=== PATIENT | male | born 2000 | race Caucasian/White ===

== ENCOUNTER 2019-07-21 16:25 | Emergency (ER) | payer OTHER ==
[~2019-07-21] VITALS: Ht 167.6 cm; Wt 63.5 kg
[2019-07-21 16:25] VITALS: BP_SYST 122
--- NOTE | 2019-07-21 16:25 | NUR ---
BROUGHT BACK TO BED #7 AND TRIAGED. REPORT GIVEN TO [facility]
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
--- NOTE | 2019-07-21 16:40 | NUR ---
ER Dr. Rodriguez at bedside examining patient.
[2019-07-21 16:50] VITALS: BP_SYST 122
--- NOTE | 2019-07-21 16:50 | NUR ---
ER discussed with the patient the results and treatment provided. Patient given written and verbal discharge instructions and verbalized understanding. Opportunity for questions provided and answered. Patient in stable condition, last set of vital signs within normal limits, pain scale 0/10, speaking in full sentences and ambulated with a steady gait upon discharge. ID arm band removed. Rx of Motrin and [place] given. Patient educated on pain management and to follow up with PMD. Medication side effect fact sheet provided.
== END 2019-07-21 16:50 | disposition home or self-care (01) ==
LOC: SED 16:25
DX: S00.01XA Abrasion of scalp, initial encounter (principal); V49.40XA Driver injured in collision with unspecified motor vehicles in traffic accident, initial encounter; Y93.89 Activity, other specified; Y92.89 Other specified places as the place of occurrence of the external cause; Y99.8 Other external cause status
CPT/HCPCS: 99283